=== PATIENT | female | born 1975 | race Caucasian/White ===

== ENCOUNTER 2019-05-30 18:55 | Emergency (ER) | payer SELFPAY ==
[~2019-05-30] VITALS: Wt 81.2 kg
[2019-05-30 19:01] VITALS: BP 113/71
[2019-05-30] MEDS ORDERED: TRAMADOL 50 MG TAB PO (19:07)
[2019-05-30] MEDS ORDERED: PRINIVIL5 M1 PO (19:07)
[2019-05-30] MEDS ORDERED: KLONOPIN 0.5MG0.5 MG (19:08)
[2019-05-30] MEDS ORDERED: HCTZ 25MG25 MG (19:08)
== END 2019-05-30 19:31 | disposition left against medical advice (07) ==
LOC: ED 18:55
DX: Z72.89 Other problems related to lifestyle (principal)